=== PATIENT | male | born 1940 | race Caucasian/White ===

== ENCOUNTER 2018-04-30 22:53 | Emergency (ER) | payer SELFPAY ==
[~2018-04-30] VITALS: Ht 167.6 cm; Wt 72.6 kg
[2018-04-30] MEDS ORDERED: ALBUTEROL SULF 2.5 MG/0.5ML(0.5%) NEB SOLN NEB STA (23:09)
[2018-04-30] MEDS ORDERED: IPRATROPIUM BROM 0.5 MG/2.5ML INH SOL NEB ONE (23:15)
[2018-04-30 23:31] LABS: Basophils # (auto) 0.1 uL; Eosinophils # (auto) 0.1 uL; Mean Corpuscular Volume 66.4 fL (80.0-100.0); Nucleated Red Blood Cells % 0.4 %
[2018-04-30 23:32] LABS: Basophils % (auto) 1.1 % (0.0-2.0); Hematocrit 43.3 % (41.0-53.0); Hemoglobin 13.4 g/dL (13.5-17.5); Lymphocytes # (auto) 1.3 uL; Lymphocytes % (auto) 13.1 % (10.0-50.0); Mean Corpuscular Hemoglobin 20.6 pg (28.0-32.0); Monocytes % (auto) 9.8 % (0.0-12.0); Neutrophils # (auto) 7.5 uL; Platelet Count (auto) 229 10^3/uL (140-450); Red Blood Cells 6.52 10^6/uL (4.5-5.90); Red Cell Distribution Width 17.4 % (11.8-14.3)
[2018-05-01] MEDS ORDERED: IPRATROPIUM BROM 0.5 MG/2.5ML INH SOL NEB ONE (00:15)
[2018-05-01] MEDS ORDERED: ALBUTEROL SULF 2.5 MG/0.5ML(0.5%) NEB SOLN NEB ONE (00:15)
[2018-05-01] MEDS ORDERED: methylPREDNISolone SOD SUCC 125 MG/2 ML VL IV ONE (00:15)
[2018-05-01 00:17] LABS: INR 1.04 (0.9-1.15); Partial Thromboplastin Time 31.8 sec (23.78-33.04); Prothrombin Time 11.1 sec (9.27-12.13)
[2018-05-01 01:37] LABS: Alanine Aminotransferase 15 U/L (16-61)
[2018-05-01 01:48] LABS: Alkaline Phosphatase 85 U/L (45-117); Anion Gap 8 (5-15); Aspartate Aminotransferase 28 U/L (15-37); BUN/Creatinine Ratio 14.1; Blood Urea Nitrogen 19 mg/dL (7-18); Carbon Dioxide 26 mmol/L (21-32); Chloride 105 mmol/L (98-107); GFR African American 66 mL/min; GFR Non-African American 55 mL/min; Glucose 108 mg/dL (74-106); Potassium 4.1 mmol/L (3.5-5.1); Sodium 139 mmol/L (136-145)
[2018-05-01 01:49] LABS: Bilirubin, Total 0.7 mg/dL (0.2-1.0); Total Protein 6.7 g/dL (6.4-8.2)
[2018-05-01 02:00] VITALS: BP 148/70
== END 2018-05-01 02:29 | disposition home or self-care (01) ==
LOC: EDBD 22:53 → ER 22:57
DX: J44.9 Chronic obstructive pulmonary disease, unspecified (principal); J32.9 Chronic sinusitis, unspecified; I10 Essential (primary) hypertension; I25.2 Old myocardial infarction; E78.5 Hyperlipidemia, unspecified; F17.210 Nicotine dependence, cigarettes, uncomplicated
CPT/HCPCS: 36415; 71045; 80053; 83880; 84484; 85025; 85610; 85730; 93005; 94640; 96374; 99284; J2930; J7611; J7644